=== PATIENT | male | born 1975 | race Caucasian/White ===

== ENCOUNTER 2023-01-12 00:34 | Observation (INO) | payer BC ==
[~2023-01-12] VITALS: Ht 185.4 cm; Wt 122.5 kg
[2023-01-12] VITALS (7 sets, daily range): BP systolic 100–138; BP diastolic 63–84; PULSE 77–91; RESP 18–20; TEMP 97.4–98.6; O2SAT 65–100
[2023-01-12] MEDS ORDERED: METOPROLOL TARTRATE INJ 1 MG/ML VIAL IV ONE (00:45)
[2023-01-12] MEDS ORDERED: ASPIRIN 81 MG CHEW TAB PO ONE ×2 (00:45→02:15)
[2023-01-12] MEDS ORDERED: SODIUM CHLORIDE FLUSH 10 ML SYR IV PRN (00:45)
[2023-01-12 00:52] LABS: BASOPHILS # (AUTO) 0.1 (0.0-0.1); BASOPHILS % 0.7 % (0.0-1.0); EOSINOPHILS # (AUTO) 0.1 (0.0-0.4); HEMATOCRIT 41.9 % (38.2-49.6); HEMOGLOBIN 14.1 g/dL (14.0-18.0); LYMPHOCYTES # (AUTO) 2.2 (1.0-3.2); LYMPHOCYTES % 31.3 % (18.0-39.1); MEAN CORPUSCULAR HEMOGLOBIN 28.7 pg (28-32); MEAN CORPUSCULAR HGB CONC 33.7 g/dL (31-35); MEAN CORPUSCULAR VOLUME 85.3 fL (81-99); MONOCYTES # (AUTO) 0.7 (0.2-0.8); MONOCYTES % 10.6 % (4.4-11.3); NEUTROPHILS # (AUTO) 3.8 (2.1-6.9); NEUTROPHILS % 55.1 % (38.7-80.0); PLATELET COUNT 154 x10e3/uL (140-360); RED BLOOD COUNT 4.91 x10e6/uL (4.3-5.7); RED CELL DISTRIBUTION WIDTH 13.1 % (11.7-14.4)
[2023-01-12 01:02] LABS: INR 0.82; PROTHROMBIN TIME 11.8 seconds (11.9-14.5)
[2023-01-12 01:03] LABS: PARTIAL THROMBOPLASTIN TIME 27.9 seconds (23.8-35.5)
[2023-01-12 01:12] LABS: ALANINE AMINOTRANSFERASE 60 IU/L (0-55); ALBUMIN/GLOBULIN RATIO 1.3 (0.8-2.0); ALKALINE PHOSPHATASE 88 IU/L (40-150); BLOOD UREA NITROGEN 17 mg/dL (7-26); BUN/CREATININE RATIO 11 (6-25); CALCIUM 9.4 mg/dL (8.4-10.2); CARBON DIOXIDE 22 mmol/L (22-29); CHLORIDE 108 mmol/L (98-107); CREATININE, SERUM 1.58 mg/dL (0.72-1.25); GLUCOSE 150 mg/dL (74-118); SODIUM 142 mmol/L (136-145)
[2023-01-12] MEDS ORDERED: DILTIAZEM HCL 5 MG/ML 5 ML VIAL IV ONE (01:15)
[2023-01-12] MEDS ORDERED: ENOXAPARIN SODIUM INJ 100 MG/ML SYR SC STA (01:52)
[2023-01-12] MEDS ORDERED: ONDANSETRON HCL INJ 2MG/ML 2ML 2 MG/ML VIAL IV PRN (02:15)
[2023-01-12] MEDS ORDERED: SODIUM CHLORIDE FLUSH 10 ML SYR INJ PRN (02:15)
[2023-01-12 02:50] LABS: AMPHETAMINES SCREEN,URINE NEGATIVE (NEGATIVE); BENZODIAZEPINES SCREEN,URINE NEGATIVE (NEGATIVE); PHENCYCLIDINE SCREEN,URINE NEGATIVE (NEGATIVE)
[2023-01-12] MEDS ORDERED: VALSARTAN-HCTZ1 EAC3 PO (04:09)
[2023-01-12] MEDS ORDERED: CLOPIDOGREL75 MG PO (04:09)
[2023-01-12] MEDS ORDERED: METOPROLOL SUCC50 MG PO (04:09)
[2023-01-12] MEDS ORDERED: METOPROLOL TARTRATE INJ 1 MG/ML VIAL IV PRN (07:15)
[2023-01-12] MEDS ORDERED: SIMETHICONE 80 MG CHEW PO PRN (07:15)
[2023-01-12] MEDS ORDERED: MELATONIN 3 MG TAB PO PRN (07:15)
[2023-01-12] MEDS ORDERED: ACETAMINOPHEN 325 MG TAB PO PRN (07:15)
[2023-01-12] MEDS ORDERED: DOCUSATE SODIUM 100 MG CAP PO PRN (07:15)
[2023-01-12] MEDS ORDERED: SODIUM CHLORIDE 0.45% 1,000 ML IV ONE (07:30)
[2023-01-12] MEDS ORDERED: DILTIAZEM HCL 30 MG TAB PO SCH (07:30)
[2023-01-12 08:33] LABS: CHOL/HDL RATIO 3.7 (3.9-4.7)
[2023-01-12 08:52] LABS: THYROID STIMULATING HORMONE 0.997 uIU/mL (0.350-4.940)
[2023-01-12] MEDS: FAMOTIDINE 20 MG TAB PO SCH ×2 (09:03→16:39)
[2023-01-12] MEDS: ASPIRIN 325 MG TAB EC PO SCH (09:03)
[2023-01-12] MEDS: APIXABAN 5 MG TABLET PO SCH ×2 (09:03→16:39)
[2023-01-12] MEDS: METOPROLOL TARTRATE 25 MG TAB PO SCH (16:40)
[2023-01-13] VITALS: BP 116/72; PULSE 63; RESP 18; TEMP 98.6; O2SAT 98
[2023-01-13 04:36] VITALS: BP 144/77; PULSE 60; RESP 20; TEMP 97.8; O2SAT 98
[2023-01-13 05:46] LABS: BASOPHILS # (AUTO) 0.1 (0.0-0.1); BASOPHILS % 0.8 % (0.0-1.0); EOSINOPHILS # (AUTO) 0.1 (0.0-0.4); EOSINOPHILS % 2.3 % (0.0-6.0); HEMATOCRIT 43.6 % (38.2-49.6); HEMOGLOBIN 14.5 g/dL (14.0-18.0); LYMPHOCYTES # (AUTO) 1.8 (1.0-3.2); LYMPHOCYTES % 28.9 % (18.0-39.1); MEAN CORPUSCULAR HEMOGLOBIN 28.5 pg (28-32); MEAN CORPUSCULAR HGB CONC 33.3 g/dL (31-35); MEAN CORPUSCULAR VOLUME 85.8 fL (81-99); MONOCYTES # (AUTO) 0.5 (0.2-0.8); MONOCYTES % 8.7 % (4.4-11.3); NEUTROPHILS # (AUTO) 3.6 (2.1-6.9); PLATELET COUNT 143 x10e3/uL (140-360); RED BLOOD COUNT 5.08 x10e6/uL (4.3-5.7); RED CELL DISTRIBUTION WIDTH 13.1 % (11.7-14.4)
[2023-01-13 06:08] LABS: ALBUMIN 3.6 g/dL (3.5-5.0); ALBUMIN/GLOBULIN RATIO 1.3 (0.8-2.0); ANION GAP 13.7 mmol/L (8-16); CALCIUM 9.3 mg/dL (8.4-10.2); CREATININE, SERUM 0.89 mg/dL (0.72-1.25); POTASSIUM 3.7 mmol/L (3.5-5.1)
[2023-01-13 06:30] LABS: PHOSPHORUS 3.8 MG/DL (2.3-4.7)
[2023-01-13] MEDS ORDERED: FAMOTIDINE20 MG PO (06:56)
[2023-01-13] MEDS ORDERED: ELIQUIS5 MG PO (06:56)
[2023-01-13] MEDS ORDERED: LOPRESSOR25 MG PO (06:56)
[2023-01-13 08:24] VITALS: BP 151/65; PULSE 55; RESP 18; TEMP 97.8; O2SAT 97
[2023-01-13] MEDS: METOPROLOL TARTRATE 25 MG TAB PO SCH (08:26)
[2023-01-13] MEDS: ASPIRIN 325 MG TAB EC PO SCH (08:30)
[2023-01-13] MEDS: FAMOTIDINE 20 MG TAB PO SCH (08:30)
[2023-01-13] MEDS: APIXABAN 5 MG TABLET PO SCH (08:30)
[2023-01-13 08:35] VITALS: BP 151/65; PULSE 55; RESP 18; TEMP 97.8; O2SAT 97
[2023-01-13] MEDS ORDERED: ONDANSETRON HCL 4 MG ORAL DISINTEGRATING TAB PO PRN (08:45)
[2023-01-13] MEDS ORDERED: CLOPIDOGREL BISULFATE 75 MG TAB PO SCH (09:00)
== END 2023-01-13 09:00 | disposition home or self-care (01) ==
LOC: ER 00:41 → ERHOLD 02:21 → MED/SURG3 04:16
PROVIDERS: ADMIT Internal Medicine; ATTEND Internal Medicine
DX: I48.91 Unspecified atrial fibrillation (principal); Z79.01 Long term (current) use of anticoagulants; N17.9 Acute kidney failure, unspecified; R73.9 Hyperglycemia, unspecified; R73.03 Prediabetes; I11.9 Hypertensive heart disease without heart failure; I25.10 Atherosclerotic heart disease of native coronary artery without angina pectoris; Z95.5 Presence of coronary angioplasty implant and graft; E66.9 Obesity, unspecified; Z68.35 Body mass index [BMI] 35.0-35.9, adult; G47.33 Obstructive sleep apnea (adult) (pediatric); Z11.52 Encounter for screening for COVID-19; Z79.02 Long term (current) use of antithrombotics/antiplatelets; Z79.899 Other long term (current) drug therapy
CPT/HCPCS: 36415 ×2; 71045; 80053 ×2; 80061; 80307; 82550; 83036; 83735; 84100; 84443; 84484; 85025 ×2; 85610; 85730; 93005; 93306; 99284; G0378 ×2; J1650; U0002